=== PATIENT | female | born 2000 | race Caucasian/White ===

== ENCOUNTER 2024-04-11 08:31 | Emergency (ER) | payer SELFPAY ==
[2024-04-11 08:32] VITALS: BP 128/79
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
== END 2024-04-11 10:17 | disposition home or self-care (01) ==
LOC: EMR 08:31
PROVIDERS: EMERGENCY PHYSICIAN Student in an Organized Health Care Education/Training Program; FAMILY PHYSICIAN Family Medicine
DX: M54.2 Cervicalgia (principal); M25.522 Pain in left elbow; V89.2XXA Person injured in unspecified motor-vehicle accident, traffic, initial encounter; Y92.410 Unspecified street and highway as the place of occurrence of the external cause
CPT/HCPCS: 99283; 72050; 73080